=== PATIENT | male | born 1945 | race Caucasian/White ===

== ENCOUNTER 2017-03-11 07:05 | Day surgery (SDC) | payer OTHER ==
[2017-03-06 08:06] LABS: HEMATOCRIT 41.3 % (40.0-51.0); HEMOGLOBIN 14.3 g/dL (13.6-17.8)
[2017-03-06 08:24] LABS: BUN (BLOOD UREA NITROGEN) 14 MG/DL (6-23); CALCIUM, SERUM 8.8 MG/DL (8.5-10.4); CHLORIDE, SERUM 109 MMOL/L (96-112); CO2 (CARBON DIOXIDE) 22 MMOL/L (24-34); CREATININE 0.98 MG/DL (0.70-1.30); GFR AFRICAN AMERICAN 91 ML/MIN (>=60); GFR NON AFRICAN AMERICAN 78 ML/MIN (>=60); GLUCOSE, SERUM 104 MG/DL (60-99); SODIUM, SERUM 143 MMOL/L (135-148)
[2017-03-06 08:26] LABS: POTASSIUM, SERUM 4.4 MMOL/L (3.5-5.3)
--- NOTE | ~2017-03-11 | OP ---
Record Of Operation [facility] [address] [place]. [address] NAME: KADIE TOMPKINS : 49 STATUS : [facility] UNIT#: [id number] AGE: 71 ADM/REG DATE : 03/11/17 MR#: [id number] REPORT SERV DATE: 03/11/17 DICTATED BY: TRISTEN VERDE DATE: 03/11/17 REPORT STATUS : Draft TRANSCRIBED BY: DEANGELO DATE: 03/11/17 DATE OF PROCEDURE: 03/11/2017 PROCEDURES: 1. Microdirect laryngoscopy, removal of right vallecular mucocele, and biopsy of the right base of tongue. 2. Excision of right neck mass with layered closure approximately 3-4 cm. PREOPERATIVE DIAGNOSES: 1. Vallecular mass. 2. Right neck mass. POSTOPERATIVE DIAGNOSES: 1. Vallecular mass. 2. Right neck mass. ANESTHESIA: General endotracheal. COMPLICATIONS: None. FINDINGS: The patient was taken to the OR and placed in supine position. Then was anesthetized, prepped and draped in standard fashion. Right cervical area was injected with 1% Xylocaine with epinephrine. The larynx was suspended with laryngoscope. The patient had a normal exam with the exceptions of what appeared to be a mucocele and just right vallecular, and somewhat of a fullness of the right base of tongue, inferior tonsillar area. The apparent mucocele was removed under microscopic vision with a art gilder blade. The base of tongue was biopsied and sent for permanent section. Patient then was repositioned. An approximately 3-4 cm incision was made in the right postauricular and superior neck. This is carried through the subcutaneous tissues to reveal subcutaneous mass on top of the sternocleidomastoid muscle. Circumferential dissection was performed with low-level electrocautery. Mass was removed. No significant bleeding noted. Wound was closed with a deep layer of 4-0 chromic suture and a subcuticular closure of 4-0 Monocryl. Steri-Strips were placed. Patient was awakened, extubated, and taken to the recovery room in good condition. BANDAR/DEANGELO Tristen Verde M.D. / [id number] CC: Tristen Verde M.D. Record Of Operation [address] [address] NAME: KADIE TOMPKINS : 49 STATUS : [facility] PAT#: [id number] AGE: 71 ADM/REG DATE : 03/11/17 MR#: [id number] REPORT SERV DATE: 03/11/17 DICTATED BY: TRISTEN VERDE DATE: 03/11/17 REPORT STATUS : Draft TRANSCRIBED BY: MODL DATE: 03/11/17 Sunny Constantino M.D.
[~2017-03-11 07:05] MED LIST: ALLEGRA180 PO; ARICEPT5 PO; ASAB PO; BACTROINT TOP; CELEXA20 PO; COZ50 PO; ECZEMA CREAM TOP; EXCEDRIN MIGRA1 EAC1 PO; FISH-EPA1000 MG PO; FLOMAX4 PO; LOPID6 PO; METAMUCIL CAN7 OZ PO; NORV5 PO; PRILOSEC40 MG PO; PRIN20 PO; PROTONIX PO; SUPER B COMP OR; SUPER B COMP PO; VERAMYST27.5 MCG NAS; VITAMI13; VITE PO; ZANTAC150 MG PO; [UNRECOGNIZED DRUG - OTHER]; [UNRECOGNIZED DRUG - OTHER] EX
[2017-07-24] MEDS ORDERED: ALLEGRA180 PO (14:13)
[2017-07-24] MEDS ORDERED: CARDCD120 PO (14:14)
[2017-07-24] MEDS ORDERED: XARELTO20 MG PO (14:14)
[2017-07-24] MEDS ORDERED: CYMBALTA30 PO (14:14)
[2017-07-24] MEDS ORDERED: EXCEDRIN EXTRA1 EACH PO (14:14)
[2017-07-26] MEDS ORDERED: PRILOSEC40 MG PO (09:04)
== END 2017-03-11 13:15 | disposition home or self-care (01) ==
LOC: SDC 07:05
PROVIDERS: Otolaryngology
PROC: 0JB40ZZ Excision of Right Neck Subcutaneous Tissue and Fascia, Open Approach (ICD-10-PCS; 2017-03-11)
PROC: 0CBR8ZX Excision of Epiglottis, Via Natural or Artificial Opening Endoscopic, Diagnostic (ICD-10-PCS; principal; 2017-03-11 09:00)
PROC: 0CBM8ZX Excision of Pharynx, Via Natural or Artificial Opening Endoscopic, Diagnostic (ICD-10-PCS; 2017-03-11 09:00)
DX: D17.0 Benign lipomatous neoplasm of skin and subcutaneous tissue of head, face and neck (principal); J38.7 Other diseases of larynx; G43.909 Migraine, unspecified, not intractable, without status migrainosus; G47.33 Obstructive sleep apnea (adult) (pediatric); K21.9 Gastro-esophageal reflux disease without esophagitis; R41.3 Other amnesia; I10 Essential (primary) hypertension; E78.5 Hyperlipidemia, unspecified; H91.90 Unspecified hearing loss, unspecified ear; M19.90 Unspecified osteoarthritis, unspecified site; L30.9 Dermatitis, unspecified; R32 Unspecified urinary incontinence; N40.0 Benign prostatic hyperplasia without lower urinary tract symptoms; E23.6 Other disorders of pituitary gland; F41.9 Anxiety disorder, unspecified; F32.9 Major depressive disorder, single episode, unspecified; Z79.899 Other long term (current) drug therapy; Z79.82 Long term (current) use of aspirin; Z87.890 Personal history of sex reassignment; Z98.42 Cataract extraction status, left eye; Z98.41 Cataract extraction status, right eye; Z96.1 Presence of intraocular lens; Z90.49 Acquired absence of other specified parts of digestive tract; Z97.4 Presence of external hearing-aid; Z87.891 Personal history of nicotine dependence
CPT/HCPCS: 80048; 85014; 85018; 88304; 88305; 88307; 93005; A9270-GY; J2250; J2405; J2710; J3010